=== PATIENT | female | born 1955 | race Caucasian/White ===

== ENCOUNTER 2017-12-26 21:16 | Emergency (ER) | payer MEDICARE ==
[2017-12-26 21:24] VITALS: BP 125/84
--- NOTE | 2017-12-26 21:52 | ED Physician Documentation ---
History of Present Illness - Stated complaint Stated Complaint: SPIDER BITE - Chief complaint Chief Complaint: General - History obtained from History obtained from: Patient - History of Present Illness Timing: Yesterday - Additonal information Additional information: 62-year-old female reports pain in her right upper thigh yesterday which has developed redness which has progressively worsened throughout the day. The patient reports feeling lightheaded but denies fevers or chills. The patient is concerned this may be a spider bite but did not see any actual bite by a spider. The patient reports redness and tenderness at the site. Symptoms are described as moderate. No other associated symptoms Review of Systems Constitutional: denies: Fever, Chills Respiratory: denies: Dyspnea GI: denies: Abdominal Pain Skin: reports: Rash, Lesions Psychiatric: denies: Delusions Immunocompromised: denies: Chemotherapy PD PAST MEDICAL HISTORY - Past Medical History Past Medical History: Yes Psych: Anxiety - Past Surgical History Past Surgical History: No - Allergies Allergies/Adverse Reactions: Allergies Allergy/AdvReac Type Severity Reaction Status Date / Time ciprofloxacin [From Cipro] Allergy Anaphylaxis Verified 12/26/17 21:24 Penicillins Allergy Unknown Verified 12/26/17 21:24 - Social History Does the pt smoke?: No Smoking Status: Never smoker PD ED PE NORMAL - General General: Alert and oriented X 3, No acute distress - HEENT HEENT: Atraumatic, PERRL, EOMI - Respiratory Respiratory: No respiratory distress - Derm Derm: Other (The patient has a moderate area of cellulitis on her right medial thigh which has been marked. There is some induration of the skin but no focal area of abscess which would necessitate incision and drainage) - Extremities Extremities: No deformity - Neuro Neuro: Alert and oriented X 3, Normal speech - Psych Psych: Normal mood Results - Vitals Vitals: Vital Signs - 24 hr 12/26/17 21:21 Temperature 36.7 C Heart Rate 73 Respiratory 16 Rate Blood Pressure 125/84 H O2 Saturation 99 Oxygen O2 Source Room air - Labs Labs: Laboratory Tests 12/26/17 21:32 POC Whole Bld Glucose 124 H PD MEDICAL DECISION MAKING - ED course Complexity details: other (On the evaluation the patient appears to have acute cellulitis which currently would benefit from oral antibiotics and outpatient management. I discussed the findings with the patient, she understands my concern for acute cellulitis. The patient has refused oral antibiotic therapy, since she is very sensitive to medications. The patient wants to see her natural physician tomorrow to help determine which antibiotic she should take. The patient has refused any prescriptions for antibiotics. The patient understands that she is at risk for a worsening cellulitis which could result in disability or significant worsening which could ultimately result in . The patient is competent to make this decision. I recommended that the patient returns to the emergency department immediately for any worsening or any concerns) - Sepsis Event Vital Signs: Vital Signs - 24 hr 12/26/17 21:21 Temperature 36.7 C Heart Rate 73 Respiratory 16 Rate Blood Pressure 125/84 H O2 Saturation 99 Oxygen O2 Source Room air Departure - Departure Disposition: Home, Self Care Clinical Impression: Cellulitis Qualifiers: Site of cellulitis: extremity Site of cellulitis of extremity: lower extremity Laterality: unspecified laterality Qualified Code(s): L03.119 - Cellulitis of unspecified part of limb Condition: Good Instructions: Cellulitis Dc, ED Infec Skin Cellulitis Follow-Up: Nicolle Torres MD [Primary Care Provider] - Tomorrow Comments: You refused treatment for your skin infection. You understand that you are risk for worsening infection which could result in sepsis or an undiagnosed condition which if left untreated could result in significant disability or . Please return to the emergency department at any point for reevaluation
== END 2017-12-26 22:15 | disposition home or self-care (01) ==
LOC: ED 21:16
DX: L03.119 Cellulitis of unspecified part of limb (principal)
CPT/HCPCS: 99282; 99283

== ENCOUNTER 2020-06-04 10:17 | Outpatient (CLI) | payer MEDICARE | END 2020-06-04 10:18 | disposition home or self-care (01) | LOC: COV 10:17 | PROVIDERS: ATTEND Family Medicine | DX: R06.02 Shortness of breath (principal); M79.10 Myalgia, unspecified site; R53.83 Other fatigue; R07.0 Pain in throat; R09.81 Nasal congestion; Z20.828 Contact with and (suspected) exposure to other viral communicable diseases ==

== ENCOUNTER 2021-12-02 08:56 | Outpatient (CLI) | payer MEDICARE ==
--- NOTE | 2021-12-02 12:41 | Ultrasound Report ---
PROCEDURE: Abdomen Limited INDICATIONS: ABNORMAL LFTS TECHNIQUE: Real-time focused scanning was performed of the abdomen, with image documentation. COMPARISON: None FINDINGS: Increased echogenicity of the liver may indicate hepatic steatosis. Gallbladder is unremarkable. No gallstones or wall thickening or pain on examination. No dilated ducts. Common bile duct measures 3.7 mm. Right kidney is normal in size with no hydronephrosis. Visualized portions the pancreas are unremarkable. IMPRESSION: 1. Probable diffuse hepatic steatosis. 2. No gallstone disease. Reviewed by: Kee Gonzalez MD on 12/02/2021 12:40 PM PDT Approved by: Kee Gonzalez MD on 12/02/2021 12:40 PM PDT Station ID: [id number]
== END 2021-12-02 08:57 | disposition home or self-care (01) ==
LOC: DI 08:56
PROVIDERS: ATTEND Internal Medicine
DX: R79.89 Other specified abnormal findings of blood chemistry (principal)

== ENCOUNTER 2022-07-14 13:15 | Outpatient (CLI) | payer MEDICARE | END 2022-07-14 13:16 | disposition critical access hospital (66) | LOC: EMS 13:15 | DX: R00.2 Palpitations (principal); R07.89 Other chest pain; R42 Dizziness and giddiness; F41.9 Anxiety disorder, unspecified | CPT/HCPCS: A0425; A0429 ==

== ENCOUNTER 2022-07-14 13:51 | Emergency (ER) | payer MEDICARE ==
[2022-07-14 14:31] LABS: BASOPHILS % (AUTO) 0.3 %; EOSINOPHILS # (AUTO) 0.1 10^3/uL (0.0-0.7); EOSINOPHILS % (AUTO) 1.2 %; HCT - HEMATOCRIT 42.5 % (37.0-47.0); LYMPHOCYTES # (AUTO) 1.4 10^3/uL (1.5-3.5); LYMPHOCYTES % (AUTO) 22.7 %; MEAN CORPUSCULAR HEMOGLOBIN 29.9 pg (27.0-31.0); MEAN CORPUSCULAR HGB CONC 32.9 g/dL (32.0-36.0); MEAN CORPUSCULAR VOLUME 90.8 fL (81.0-99.0); MEAN PLATELET VOLUME 11.3 fL (7.9-10.8); MONOCYTES # (AUTO) 0.5 10^3/uL (0.0-1.0); MONOCYTES % (AUTO) 7.5 %; NEUTROPHILS # (AUTO) 4.1 10^3/uL (1.5-6.6); NEUTROPHILS % (AUTO) 68.1 %; PLT - PLATELET COUNT 223 10^3/uL (130-450); RED BLOOD COUNT 4.68 10^6/uL (4.20-5.40); RED CELL DISTRIBUTION WIDTH 12.7 % (12.0-15.0)
[2022-07-14 14:46] LABS: ALBUMIN 4.2 g/dL (3.2-5.5); ALBUMIN/GLOBULIN RATIO 1.6 (1.0-2.2); BILIRUBIN,TOTAL 0.8 mg/dL (0.2-1.0); CALCIUM 9.4 mg/dL (8.5-10.3); CREATININE 0.8 mg/dL (0.4-1.0); POTASSIUM 4.2 mmol/L (3.5-5.0); TOTAL PROTEIN 6.9 g/dL (6.7-8.2)
--- NOTE | 2022-07-14 14:52 | XRAY Report ---
PROCEDURE: Chest 1 View X-Ray INDICATIONS: Chest Pain TECHNIQUE: One view of the chest was acquired. COMPARISON: None. FINDINGS: Surgical changes and devices: None. Lungs and pleura: No pleural effusions or pneumothorax. Lungs are clear. Mediastinum: Mediastinal contours appear normal. Heart size is normal. Bones and chest wall: No suspicious bony lesions. Overlying soft tissues appear unremarkable. IMPRESSION: No acute cardiopulmonary process demonstrated radiographically. Reviewed by: Ottoniel Syed MD on 07/14/2022 2:50 PM [facility] Approved by: Ottoniel Syed MD on 07/14/2022 2:50 PM [facility] Station ID: [id number]
--- NOTE | 2022-07-14 15:48 | ED Physician Documentation ---
History of Present Illness - Stated complaint Stated Complaint: CHEST PALP - Chief complaint Chief Complaint: Cardiac - Additonal information Additional information: 58-year-old female presents emergency department for evaluation of palpitations and chest pressure. Each of the last 2 mornings she is woken up and has the sensation of something sitting on her chest. She typically sleeps on her back but when she is woken up she is on her left side. The symptoms resolve when she turns to her back. She does have a history of sarcoidosis. Currently undergoing evaluation by a speed reading teacher Dr. Garcia at [facility]. She has completed a Holter monitor but does not yet know the results. Recently underwent an echo and is scheduling a stress test. She does not smoke. Has no history of hypertension. She did call 911. With the reported history EMS gave 324 of aspirin. Review of Systems Constitutional: denies: Fever, Chills Cardiac: reports: Chest pain / pressure. denies: Palpitations Respiratory: reports: Reviewed and negative GI: reports: Reviewed and negative : reports: Reviewed and negative Skin: reports: Reviewed and negative PD PAST MEDICAL HISTORY - Past Medical History Past Medical History: Yes Respiratory: Asthma Psych: Anxiety - Past Surgical History Past Surgical History: No - Allergies Allergies/Adverse Reactions: Allergies Allergy/AdvReac Type Severity Reaction Status Date / Time ciprofloxacin [From Cipro] Allergy Anaphylaxis Verified 07/14/22 14:05 Penicillins Allergy Unknown Verified 07/14/22 14:05 - Social History Does the pt smoke?: No Smoking Status: Never smoker Does the pt drink ETOH?: No Does the pt have substance abuse?: No - Immunizations Immunizations are current?: No PD ED PE NORMAL - General General: Alert and oriented X 3, No acute distress - HEENT HEENT: PERRL - Cardiac Cardiac: RRR, No murmur, No gallop, Other (Some substernal chest pain is reproducible with palpation.) - Respiratory Respiratory: No respiratory distress, Clear bilaterally - Abdomen Abdomen: Normal bowel sounds, Soft, Non tender Results - Vitals Vitals: Vital Signs - 24 hr 07/14/22 14:01 Temperature 36.6 C Heart Rate 71 Respiratory 18 Rate Blood Pressure 139/62 H O2 Saturation 98 Oxygen O2 Source Room air - EKG (time done) 1418 Rate: Rate (enter#) (66) Rhythm: NSR [place]: Normal Intervals: Normal IN QRS: Normal Compare to prior EKG: Old EKG unavailable Computer interpretation: Agree with computer - Labs Labs: Laboratory Tests 07/14/22 07/14/22 07/14/22 14:25 14:25 14:25 WBC 6.0 RBC 4.68 Hgb 14.0 Hct 42.5 MCV 90.8 MCH 29.9 MCHC 32.9 RDW 12.7 Plt Count 223 MPV 11.3 H Neut # (Auto) 4.1 Lymph # (Auto) 1.4 L [place] # (Auto) 0.5 Eos # (Auto) 0.1 Baso # (Auto) 0.0 Absolute Nucleated RBC 0.00 Nucleated RBC % 0.0 Sodium 135 Potassium 4.2 Chloride 99 L Carbon Dioxide 27 Anion Gap 9.0 BUN 17 Creatinine 0.8 Estimated GFR (MDRD) 71 L Glucose 106 H Calcium 9.4 Total Bilirubin 0.8 AST 22 ALT 28 Alkaline Phosphatase 70 Troponin I High Sens 3.3 B-Natriuretic Peptide Total Protein 6.9 Albumin 4.2 Globulin 2.7 Albumin/Globulin Ratio 1.6 Lipase 31 07/14/22 14:25 WBC RBC Hgb Hct MCV MCH MCHC RDW Plt Count MPV Neut # (Auto) Lymph # (Auto) [place] # (Auto) Eos # (Auto) Baso # (Auto) Absolute Nucleated RBC Nucleated RBC % Sodium Potassium Chloride Carbon Dioxide Anion Gap BUN Creatinine Estimated GFR (MDRD) Glucose Calcium Total Bilirubin AST ALT Alkaline Phosphatase Troponin I High Sens B-Natriuretic Peptide 18 Total Protein Albumin Globulin Albumin/Globulin Ratio Lipase - Rads (name of study) cxr Radiology: Final report received (No acute cardiopulmonary process) PD Medical Decision Making - ED course Complexity details: reviewed results, re-evaluated patient, considered differential, d/w patient ED course: This is a 66-year-old female who has a history of sarcoidosis who presents to the emergency department for evaluation of left-sided substernal chest pain and pressure that she has woken up with each morning for the last 2 mornings. She describes it as a sensation of an elephant sitting on her chest. Pain does not radiate. There is no nausea or diaphoresis. Pain improves when she changes positions to her back. On exam she appears remarkably well. She has unremarkable vitals here in the ER. Her EKG is sinus rhythm without ischemic changes or evidence to suggest previous myocardial infarction. Chest x-ray was without findings of pneumonia, pleural effusion or cardiomegaly. We did obtain a CBC electrolytes as well as a high-sensitivity per troponin. Per my interpretation entirely unremarkable without worrisome findings. The chest pain was mildly reproducible on exam and with a history of sarcoidosis this could be musculoskeletal. However the patient is already associated with cardiology at [facility]. She is completed a Holter monitor though does not yet have the results as well as an echocardiogram. Her speed reading teacher has ordered a stress test which she is getting scheduled. At this time she does not appear to be having ACS. Her heart score Is 3 putting her at low risk for 30-day Mace. She is discharged home in stable condition. Usual routine emergent return precautions discussed Departure - Departure Disposition: Home, Self Care Clinical Impression: History of sarcoidosis Chest pain Qualifiers: Chest pain type: unspecified Qualified Code(s): R07.9 - Chest pain, unspecified Condition: Stable Record reviewed to determine appropriate education?: Yes Comments: Milly cortez came to the emergency department today because for the last 2 mornings you have been having some chest pain when you wake up. It is the sensation of something sitting on your chest. You found this because you are lying on your side but the pain improves when you moved your back. You recently completed a Holter monitor but do not yet know the results. The EKG today is essentially normal and shows no signs of ischemia. We did obtain a CBC, electrolytes as well as a troponin. These are all normal. Your chest x-ray also shows nothing worrisome such as a pneumonia, pleural effusion or cardiac enlargement. It is important that you are already established with a speed reading teacher. Please continue to follow-up with the ordered stress test. This is the most important test for you to get. Return to the ER if you find your symptoms are worsening, you have any fainting episodes, have sudden severe shortness of air, or find that your symptoms are persisting despite changing positions
[2022-07-14 15:55] VITALS: BP 130/58
== END 2022-07-14 15:57 | disposition home or self-care (01) ==
LOC: EDUNIT# → ED 13:51
DX: R07.9 Chest pain, unspecified (principal); Z87.09 Personal history of other diseases of the respiratory system
CPT/HCPCS: 36415; 80053; 83690; 83880; 84484; 85025; 93005; 99283; 99284

== ENCOUNTER 2022-08-26 13:19 | Outpatient (CLI) | payer MEDICARE ==
--- NOTE | 2022-08-26 15:39 | Ultrasound Report ---
PROCEDURE: Pelvic w/Transvaginal INDICATIONS: PELVIC PAIN TECHNIQUE: Real-time scanning was performed of the pelvic organs, with image documentation. Additional endovagi nal scanning was necessary due to incomplete visualization of the adnexal and endometrial structures by transabdominal scanning. COMPARISON: None. FINDINGS: Uterus: Uterus is anteverted and normal in size at 5.2 x 1.9 x 3.6 cm. The myometrium is homogeneou s. Mid anterior submucosal mass measuring 17 mm. Endometrium is mildly thickened at 5.6 mm and is het erogeneous. Ovaries: The right ovary measures 2.1 x 1.0 x 1.1 cm, with a calculated ovarian volume of 1.2 cc. T he left ovary measures 1.3 x 1.3 x 1.0 cm, with a calculated ovarian volume of 0.9 cc. Multiple echog enic foci within the left ovary. Less than 12 follicles can be seen in each ovary. No adnexal masses are seen. Other: No pathologic free abdominal or pelvic fluid. IMPRESSION: 1. Thickening of the endometrium, possibly indicating hyperplasia or malignancy. 2. Submucosal fibroid versus endometrial mass. Reviewed by: Holden Dai MD on 08/26/2022 3:38 PM PST Approved by: Holden Dai MD on 08/26/2022 3:38 PM PST Station ID: [id number]
== END 2022-08-26 13:20 | disposition home or self-care (01) ==
LOC: DI 13:19
PROVIDERS: ATTEND Internal Medicine
DX: R10.2 Pelvic and perineal pain (principal); R93.89 Abnormal findings on diagnostic imaging of other specified body structures

== ENCOUNTER 2023-06-06 07:34 | Emergency (ER) | payer MEDICARE ==
--- NOTE | 2023-06-06 08:30 | ED Physician Documentation ---
PD HPI URI - Stated complaint Stated Complaint: DIZZY,PRESSURE ON CHEST - Chief complaint Chief Complaint: General - History obtained from History obtained from: Patient - History of Present Illness Timing - onset: How many days ago (2) Timing duration: Days (2) Timing details: Gradual onset, Still present Associated symptoms: Chills, Dry cough, Chest pain, Dyspnea. No: Fever, NVD, Bilateral edema Contributing factors: Sick contact. No: Travel, COPD / asthma Similar symptoms before: Has not had sx before Recently seen: Emergency Dept Review of Systems Constitutional: reports: Chills, Myalgias, Fatigue Nose: reports: Rhinorrhea / runny nose, Congestion Throat: reports: Sore throat Cardiac: denies: Chest pain / pressure Respiratory: reports: Dyspnea, Cough GI: denies: Abdominal Pain PD PAST MEDICAL HISTORY - Past Medical History Respiratory: Asthma Psych: Anxiety - Past Surgical History Past Surgical History: No - Present Medications Home Medications: Ambulatory Orders Medication Instructions Recorded Confirmed No Known Home Medications 06/06/23 06/06/23 - Allergies Allergies/Adverse Reactions: Allergies Allergy/AdvReac Type Severity Reaction Status Date / Time ciprofloxacin [From Cipro] Allergy Anaphylaxis Verified 06/06/23 07:39 Penicillins Allergy Unknown Verified 06/06/23 07:39 - Social History Does the pt smoke?: No Smoking Status: Never smoker Does the pt drink ETOH?: No Does the pt have substance abuse?: No - Immunizations Immunizations are current?: No PD ED PE NORMAL - Vitals Vital signs reviewed: Yes - General General: Alert and oriented X 3, No acute distress (no distress per se, but appears weak/tired with presudddddd), Well developed/nourished - HEENT HEENT: Pharynx benign - Neck Neck: Supple, no meningeal sign, No adenopathy - Cardiac Cardiac: RRR, No murmur - Respiratory Respiratory: Clear bilaterally - Abdomen Abdomen: Soft, Non tender - Derm Derm: Normal color, Warm and dry - Neuro Neuro: No motor deficit, No sensory deficit Results - Vitals Vitals: Vital Signs - 24 hr 06/06/23 06/06/23 06/06/23 07:41 08:41 09:24 Temperature 36.5 C Heart Rate 77 69 81 Respiratory 18 22 16 Rate Blood Pressure 134/59 H 129/77 137/66 H O2 Saturation 100 100 99 Oxygen O2 Source Room air - EKG (time done) 07:46 EKG releavant findings:: EKG personally interpreted by author of this note. Relevant findings are: Rate: Rate (enter#) (65) Rhythm: NSR [place]: Normal Intervals: Normal SC QRS: Normal Ischemia: Normal ST segments. No: ST elevation c/w ischemia, ST depression - Labs Labs: Laboratory Tests 06/06/23 07:35 Nasal Adenovirus (PCR) NOT DETECTED Nasal B. parapertussis DNA (PCR) NOT DETECTED Nasal Coronavir 229E PCR NOT DETECTED Nasal Coronavir HKU1 PCR NOT DETECTED Nasal Coronavir NL63 PCR NOT DETECTED Nasal Coronavir OC43 PCR NOT DETECTED Nasal Enterovir/Rhinovir PCR NOT DETECTED Nasal Influenza B PCR NOT DETECTED Nasal Influenza A PCR NOT DETECTED Nasal Parainfluen 1 PCR NOT DETECTED Nasal Parainfluen 2 PCR NOT DETECTED Nasal Parainfluen 3 PCR NOT DETECTED Nasal Parainfluen 4 PCR NOT DETECTED Nasal RSV (PCR) NOT DETECTED Nasal B.pertussis DNA PCR NOT DETECTED Nasal C.pneumoniae (PCR) NOT DETECTED Nick Human Metapneumo PCR NOT DETECTED Nasal M.pneumoniae (PCR) NOT DETECTED Nasal SARS-CoV-2 (PCR) NOT DETECTED PD Medical Decision Making - ED course Complexity details: reviewed results (respiratory PCR negative. Presume too early to differentiate which virus vs one not on the testing panel. ), considered differential (describes likley viral syndrome, with some cough and pressure feeling in chest. has aches and myalgias, fatigue all onset this past couple of days. Sounds viral syndrome. ), d/w patient Departure - Departure Disposition: 01 Home, Self Care Clinical Impression: Acute viral syndrome Condition: Stable Record reviewed to determine appropriate education?: Yes Instructions: ED Viral Syndrome Follow-Up: Nicolle Torres MD [Primary Care Provider] - Comments: Your viral respiratory panel is negative for all of the tested viruses including COVID, RSV, flu, rhinovirus, adenovirus and several others. Your symptoms are suggestive of early viral syndrome. See how you feel over the next day or so. Any home remedies that you feel are effective are good. Stay well-hydrated. With persistent or increasing symptoms, you could repeat the home testing for COVID as it may take a day or 2 to become positive in the early illness. Return if needed based on increased symptoms trouble breathing etc. Forms: PCP List Discharge Date/Time: 06/06/23 09:24
[2023-06-06 08:53] LABS: B. PARAPERTUSSIS- RESP PCR PAN NOT DETECTED; B. PERTUSSIS- RESP PCR PANEL NOT DETECTED; C. PNEUMONIAE- RESP PCR PANEL NOT DETECTED; CORONAVIRUS 229E-RESP PCR NOT DETECTED; CORONAVIRUS HKU1-RESP PCR NOT DETECTED; CORONAVIRUS NL63-RESP PCR NOT DETECTED; CORONAVIRUS OC43-RESP PCR NOT DETECTED; HUMAN METAPNEUMOVIRUS NOT DETECTED; INFLUENZA A- RESP PCR PANEL NOT DETECTED; INFLUENZA B - RESP PCR PANEL NOT DETECTED; M. PNEUMONIAE- RESP PCR PANEL NOT DETECTED; PARAINFLUENZA VIRUS 1 NOT DETECTED; PARAINFLUENZA VIRUS 2 NOT DETECTED; PARAINFLUENZA VIRUS 3 NOT DETECTED; PARAINFLUENZA VIRUS 4 NOT DETECTED; RHINOVIRUS/ENTEROVIRUS NOT DETECTED; RSV- RESP PCR PANEL NOT DETECTED; SARS-CoV-2 -RESP PCR PANEL NOT DETECTED
[2023-06-06 09:30] VITALS: BP 137/66; O2SAT 99
== END 2023-06-06 09:24 | disposition home or self-care (01) ==
LOC: ED 07:34
DX: B34.9 Viral infection, unspecified (principal); Z11.52 Encounter for screening for COVID-19
CPT/HCPCS: 87633; 93005; 99283